=== PATIENT | female | born 1960 | race Two or more races ===

== ENCOUNTER 2021-11-02 09:31 | Emergency (ER) | payer OTHER ==
[~2021-11-02] VITALS: Ht 157.5 cm; Wt 46.3 kg
[2021-11-02 10:26] VITALS: BP 140/89
== END 2021-11-02 12:21 | disposition home or self-care (01) ==
LOC: ER 09:31
DX: S83.92XA Sprain of unspecified site of left knee, initial encounter (principal); E11.9 Type 2 diabetes mellitus without complications; W01.0XXA Fall on same level from slipping, tripping and stumbling without subsequent striking against object, initial encounter; Y93.89 Activity, other specified; Y92.89 Other specified places as the place of occurrence of the external cause; Y99.8 Other external cause status
CPT/HCPCS: 29505; 73562